=== PATIENT | female | born 1940 | race Caucasian/White ===

== ENCOUNTER 2017-10-02 16:22 | Inpatient (IN) | payer MEDICARE, OTHER ==
[2017-10-02 16:55] LABS: ADD MAN DIFF? NO
[2017-10-02] MEDS: CEFTRIAXONE 1 GM/50 ML (PMX) 50 ML IVPB (16:56)
[2017-10-02 16:57] LABS: BASOPHILS % 0.3 % (0.0-2.0); EOSINOPHILS # 0.1 10^3/ul (0.0-0.5); HEMATOCRIT 30.9 % (37.0-47.0); LYMPHOCYTES # 1.1 10^3/ul (0.8-2.9); LYMPHOCYTES % 18.4 % (15.0-51.0); MEAN CORPUSCULAR HEMOGLOBIN 27.7 pg (29.0-33.0); MEAN CORPUSCULAR HGB CONC 32.4 g/dl (32.0-37.0); MEAN CORPUSCULAR VOLUME 85.6 fl (82.0-101.0); MEAN PLATELET VOLUME 10.3 fl (7.4-10.4); MONOCYTE # 0.7 10^3/ul (0.3-0.9); MONOCYTES % 11.9 % (0.0-11.0); NEUTROPHILS % 67.5 % (39.0-77.0); PLATELET COUNT 179 10^3/UL (140-415); RED BLOOD COUNT 3.61 10^6/ul (4.20-5.40); RED CELL DISTRIBUTION WIDTH 15.2 % (11.5-14.5)
[2017-10-02 16:57] LABS: WHITE BLOOD COUNT 5.9 10^3/ul (4.8-10.8)
[2017-10-02 17:13] LABS: LACTIC ACID 1.4 mmol/L (0.5-2.0)
[2017-10-02 17:14] LABS: INR 0.93; PROTIME 12.5 Sec (11.9-14.9)
[2017-10-02 17:15] LABS: ALANINE AMINOTRANSFERASE 16 IU/L (13-69); ALBUMIN 3.8 g/dl (3.3-4.9); ALBUMIN/GLOBULIN RATIO 0.92; ALKALINE PHOSPHATASE 80 IU/L (42-121); ANION GAP 24 (8-16); ASPARTATE AMINO TRANSFERASE 15 IU/L (15-46); CALCIUM 9.3 mg/dl (8.4-10.2); CARBON DIOXIDE 30 mmol/L (21-31); CHLORIDE 88 mmol/L (97-110); CREATININE 4.08 mg/dl (0.44-1.00); GLUCOSE 89 mg/dl (70-220); PARTIAL THROMBOPLASTIN TIME 25.8 Sec (25.0-35.0); SODIUM 139 mmol/L (135-144); TOTAL PROTEIN 7.9 g/dl (6.1-8.1)
[2017-10-02 17:25] LABS: BLOOD UREA NITROGEN 129 mg/dl (7-20); POTASSIUM 2.8 mmol/L (3.5-5.1)
[2017-10-02 17:26] LABS: TROPONIN-I 0.047 ng/ml (0.00-0.12)
[2017-10-02 17:27] LABS: ADD UMIC YES; UR ASCORBIC ACID NEGATIVE (NEGATIVE); UR BACTERIA MODERATE /HPF (NONE SEEN); UR BILIRUBIN (Dip) NEGATIVE (NEGATIVE); UR BLOOD (Dip) 1+ mg/dL (NEGATIVE); UR CLARITY TURBID (CLEAR); UR COLOR YELLOW (YELLOW); UR GLUCOSE (Dip) NEGATIVE (NEGATIVE); UR KETONES (Dip) TRACE mg/dL (NEGATIVE); UR LEUKOCYTE ESTERASE (Dip) 2+ Leu/ul (NEGATIVE); UR NITRITE (Dip) POSITIVE (NEGATIVE); UR RBC 21 /HPF (0-5); UR TOTAL PROTEIN (Dip) 2+ mg/dl (NEGATIVE); UR UROBILINOGEN (Dip) NEGATIVE (NEGATIVE); UR WBC > 182 /HPF (0-5)
[2017-10-02] MEDS: morphine 4 MG/ML VIAL IV (17:30)
[2017-10-02] MEDS: ONDANSETRON 4 MG INJ IV (17:30)
[2017-10-02] MEDS: SODIUM CHLORIDE 0.9% 1L BAG IV* (18:27)
[2017-10-02] MEDS ORDERED: ONDANSETRON 4 MG TAB PO (19:00)
[2017-10-02] MEDS ORDERED: ONDANSETRON 4 MG INJ IV (19:00)
[2017-10-02] MEDS ORDERED: DOCUSATE SODIUM 100 MG CAP PO (19:00)
[2017-10-02] MEDS ORDERED: NACL 0.9% 3 ML SYG IV (19:00)
[2017-10-02] MEDS ORDERED: MAGNESIUM HYDROXIDE 30ML CUP PO (19:00)
[2017-10-02] MEDS ORDERED: ACETAMINOPHEN 325 MG TAB PO ×2 (19:00)
[2017-10-02] MEDS: [UNRECOGNIZED DRUG - REMARK] XX (19:30)
[2017-10-02 19:58] LABS: B-TYPE NATRIURETIC PEPTIDE 3970 PG/ML (0-450)
[2017-10-02] MEDS ORDERED: GLUCOSE GEL 15 GRAM TUBE BUCCAL (20:30)
[2017-10-02] MEDS ORDERED: GLUCAGON 1 MG INJ IM (20:30)
[2017-10-02] MEDS ORDERED: DEXTROSE 50% 50 ML SYRINGE IV ×2 (20:30)
[2017-10-02] MEDS ORDERED: GLUCOSE GEL 15 GRAM TUBE PO ×2 (20:30)
[2017-10-02 20:48] LABS: LACTIC ACID 1.1 mmol/L (0.5-2.0)
[2017-10-02 20:51] LABS: SODIUM,URINE RANDOM 74 mmol/L (30-90)
[2017-10-02 20:51] LABS: CREATININE,URINE RANDOM 49.86 mg/dl (20-320)
[2017-10-02] MEDS: DOCUSATE SODIUM 100 MG CAP PO (21:00)
[2017-10-02] MEDS: INSULIN ASPART [NOVOLOG] 3 ML PEN SC (21:00)
[2017-10-02] MEDS: POTASSIUM CHLORIDE (SR) 20 MEQ TAB PO (22:20)
[2017-10-02] MEDS: DIPYRIDAMOLE/ASPIRIN (SR) CAP PO (22:20)
[2017-10-02] MEDS: FISH OIL 1,000 MG CAP PO (22:20)
[2017-10-02] MEDS: INSULIN GLARGINE [LANtus] 3 ML PEN SC (22:21)
[2017-10-02] MEDS: SALMETEROL/FLUTICASONE 250/50 INHA INH (22:21)
[2017-10-02 22:49] LABS: LACTIC ACID 1.3 mmol/L (0.5-2.0); MAGNESIUM 1.4 mg/dl (1.7-2.5)
[2017-10-02] MEDS: ALBUTEROL/IPRATROPIUM (NEB) 3 ML AMP HHN ×2 (23:44→23:48)
[2017-10-03] MEDS: MAGNESIUM SULFATE 2 GM/50 ML 50 ML IVPB (00:52)
[2017-10-03] MEDS: ACCU-CHEK XX (02:00)
[2017-10-03] MEDS: POTASSIUM CHLORIDE 100 ML IVPB ×2 (02:18→04:27)
[2017-10-03] MEDS: [UNRECOGNIZED DRUG - REMARK] XX ×3 (03:30→19:30)
[2017-10-03 05:52] LABS: ADD MAN DIFF? NO
[2017-10-03 05:57] LABS: WHITE BLOOD COUNT 4.8 10^3/ul (4.8-10.8)
[2017-10-03 05:57] LABS: BASOPHILS % 0.6 % (0.0-2.0); EOSINOPHILS # 0.1 10^3/ul (0.0-0.5); EOSINOPHILS % 2.3 % (0.0-7.0); HEMATOCRIT 29.5 % (37.0-47.0); HEMOGLOBIN 9.4 g/dl (12.0-16.0); LYMPHOCYTES % 20.3 % (15.0-51.0); MEAN CORPUSCULAR HEMOGLOBIN 27.5 pg (29.0-33.0); MEAN CORPUSCULAR HGB CONC 31.9 g/dl (32.0-37.0); MEAN CORPUSCULAR VOLUME 86.3 fl (82.0-101.0); MEAN PLATELET VOLUME 10.3 fl (7.4-10.4); MONOCYTE # 0.7 10^3/ul (0.3-0.9); MONOCYTES % 14.3 % (0.0-11.0); NEUTROPHILS % 61.5 % (39.0-77.0); PLATELET COUNT 180 10^3/UL (140-415); RED BLOOD COUNT 3.42 10^6/ul (4.20-5.40); RED CELL DISTRIBUTION WIDTH 15.2 % (11.5-14.5)
[2017-10-03 06:11] LABS: HEMOGLOBIN A1C 6.5 % (0-5.9)
[2017-10-03 06:17] LABS: ANION GAP 21 (8-16); CALCIUM 9.1 mg/dl (8.4-10.2); CARBON DIOXIDE 29 mmol/L (21-31); CHLORIDE 94 mmol/L (97-110); CREATININE 3.69 mg/dl (0.44-1.00); GLUCOSE 108 mg/dl (70-220); MAGNESIUM 2.1 mg/dl (1.7-2.5); PHOSPHORUS 6.6 mg/dl (2.5-4.9); POTASSIUM 3.6 mmol/L (3.5-5.1); SODIUM 140 mmol/L (135-144)
[2017-10-03 07:15] LABS: BLOOD UREA NITROGEN 122 mg/dl (7-20)
[2017-10-03] MEDS: INSULIN ASPART [NOVOLOG] 3 ML PEN SC ×7 (07:49→20:48)
[2017-10-03] MEDS: ALBUTEROL/IPRATROPIUM (NEB) 3 ML AMP HHN ×3 (08:22→23:17)
[2017-10-03] MEDS: CLOPIDOGREL 75 MG TAB PO (08:34)
[2017-10-03] MEDS: DOCUSATE SODIUM 100 MG CAP PO ×2 (08:34→20:43)
[2017-10-03] MEDS: FISH OIL 1,000 MG CAP PO ×2 (08:34→20:43)
[2017-10-03] MEDS: DIPYRIDAMOLE/ASPIRIN (SR) CAP PO ×2 (08:35→21:03)
[2017-10-03] MEDS: SALMETEROL/FLUTICASONE 250/50 INHA INH ×2 (08:35→20:38)
[2017-10-03] MEDS: ENOXAPARIN 40 MG/0.4 ML SYG SC (08:41)
[2017-10-03] MEDS ORDERED: NON-FORMULARY/PATIENT OWN MED (Linaclotide (Linzess) 145 MCG) PO (09:00)
[2017-10-03] MEDS: SOD CHLORIDE 0.9% 250 ML IV (11:33)
[2017-10-03] MEDS: HYDROCODONE/APAP (5/325) TAB PO (13:11)
[2017-10-03] MEDS: SOD CHLORIDE 0.9% 500 ML IV (14:02)
[2017-10-03] MEDS: CEFTRIAXONE 1 GM/50 ML (PMX) 50 ML IVPB (16:39)
[2017-10-03] MEDS ORDERED: ENOXAPARIN 100 MG/ML SYG SC ×2 (18:00→21:00)
[2017-10-03] MEDS ORDERED: HEPARIN 1000 UNITS/ML 10 ML INJ IV ×2 (18:30)
[2017-10-03 18:50] LABS: ADD MAN DIFF? NO
[2017-10-03 18:51] LABS: WHITE BLOOD COUNT 4.6 10^3/ul (4.8-10.8)
[2017-10-03 18:51] LABS: BASOPHILS % 0.4 % (0.0-2.0); EOSINOPHILS % 0.9 % (0.0-7.0); HEMATOCRIT 28.2 % (37.0-47.0); LYMPHOCYTES % 21.2 % (15.0-51.0); MEAN CORPUSCULAR HEMOGLOBIN 27.8 pg (29.0-33.0); MEAN CORPUSCULAR HGB CONC 31.9 g/dl (32.0-37.0); MEAN PLATELET VOLUME 9.8 fl (7.4-10.4); MONOCYTE # 0.5 10^3/ul (0.3-0.9); MONOCYTES % 11.2 % (0.0-11.0); NEUTROPHILS % 64.6 % (39.0-77.0); PLATELET COUNT 167 10^3/UL (140-415); RED BLOOD COUNT 3.24 10^6/ul (4.20-5.40); RED CELL DISTRIBUTION WIDTH 15.3 % (11.5-14.5)
[2017-10-03 19:11] LABS: INR 0.98; PROTIME 13.1 Sec (11.9-14.9)
[2017-10-03 19:17] LABS: PARTIAL THROMBOPLASTIN TIME 28.6 Sec (25.0-35.0)
[2017-10-03] MEDS: WARFARIN 5 MG TAB PO (19:29)
[2017-10-03] MEDS: HEPARIN 1000 UNITS/ML 10 ML INJ IV (19:36)
[2017-10-03] MEDS: HEPARIN 25000 UNITS/250 ML 250 ML IV (20:43)
[2017-10-03] MEDS: INSULIN GLARGINE [LANtus] 3 ML PEN SC (20:48)
[2017-10-04] MEDS: ACCU-CHEK XX (02:45)
[2017-10-04] MEDS: [UNRECOGNIZED DRUG - REMARK] XX ×2 (03:30→11:30)
[2017-10-04 04:15] LABS: ANION GAP 19 (8-16); BLOOD UREA NITROGEN 118 mg/dl (7-20); CALCIUM 8.8 mg/dl (8.4-10.2); CARBON DIOXIDE 27 mmol/L (21-31); CHLORIDE 98 mmol/L (97-110); CREATININE 3.27 mg/dl (0.44-1.00); GLUCOSE 186 mg/dl (70-220); MAGNESIUM 1.9 mg/dl (1.7-2.5); PHOSPHORUS 5.5 mg/dl (2.5-4.9); POTASSIUM 3.3 mmol/L (3.5-5.1); SODIUM 141 mmol/L (135-144)
[2017-10-04 04:32] LABS: PARTIAL THROMBOPLASTIN TIME > 180.0 Sec (25.0-35.0)
[2017-10-04 06:50] LABS: PARTIAL THROMBOPLASTIN TIME > 180.0 Sec (25.0-35.0)
[2017-10-04] MEDS: ALBUTEROL/IPRATROPIUM (NEB) 3 ML AMP HHN ×2 (08:00→16:00)
[2017-10-04] MEDS: INSULIN ASPART [NOVOLOG] 3 ML PEN SC ×7 (08:23→21:13)
[2017-10-04] MEDS: FISH OIL 1,000 MG CAP PO ×3 (08:26→21:07)
[2017-10-04] MEDS: DOCUSATE SODIUM 100 MG CAP PO ×3 (08:29→21:18)
[2017-10-04] MEDS: SALMETEROL/FLUTICASONE 250/50 INHA INH ×2 (09:06→21:20)
[2017-10-04] MEDS: HYDROCODONE/APAP (5/325) TAB PO ×2 (09:54→15:52)
[2017-10-04] MEDS: DIPYRIDAMOLE/ASPIRIN (SR) CAP PO ×2 (11:47→21:07)
[2017-10-04] MEDS: CLOPIDOGREL 75 MG TAB PO (11:47)
[2017-10-04 13:14] LABS: IRON 56 ug/dl (35-150)
[2017-10-04 13:23] LABS: % IRON SATURATION 31 % SAT (22-52); TOTAL IRON BINDING CAPACITY 182 ug/dl (241-421)
[2017-10-04 16:04] LABS: PARTIAL THROMBOPLASTIN TIME 141.6 Sec (25.0-35.0)
[2017-10-04] MEDS: CEFTRIAXONE 1 GM/50 ML (PMX) 50 ML IVPB (16:30)
[2017-10-04] MEDS: HEPARIN 25000 UNITS/250 ML 250 ML IV (17:27)
[2017-10-04] MEDS: WARFARIN 5 MG TAB PO (18:13)
[2017-10-04 21:12] LABS: PARTIAL THROMBOPLASTIN TIME 66.5 Sec (25.0-35.0)
[2017-10-04] MEDS: INSULIN GLARGINE [LANtus] 3 ML PEN SC (21:13)
[2017-10-05] MEDS: ACCU-CHEK XX (02:00)
[2017-10-05 04:05] LABS: ADD MAN DIFF? NO
[2017-10-05 04:07] LABS: BASOPHILS % 0.7 % (0.0-2.0); EOSINOPHILS # 0.1 10^3/ul (0.0-0.5); EOSINOPHILS % 2.1 % (0.0-7.0); HEMATOCRIT 29.2 % (37.0-47.0); HEMOGLOBIN 9.3 g/dl (12.0-16.0); LYMPHOCYTES # 1.1 10^3/ul (0.8-2.9); LYMPHOCYTES % 19.1 % (15.0-51.0); MEAN CORPUSCULAR HEMOGLOBIN 27.8 pg (29.0-33.0); MEAN CORPUSCULAR HGB CONC 31.8 g/dl (32.0-37.0); MEAN CORPUSCULAR VOLUME 87.2 fl (82.0-101.0); MONOCYTE # 0.6 10^3/ul (0.3-0.9); MONOCYTES % 10.1 % (0.0-11.0); NEUTROPHIL # 3.6 10^3/ul (1.6-7.5); NEUTROPHILS % 64.6 % (39.0-77.0); PLATELET COUNT 150 10^3/UL (140-415); RED BLOOD COUNT 3.35 10^6/ul (4.20-5.40); RED CELL DISTRIBUTION WIDTH 15.1 % (11.5-14.5)
[2017-10-05 04:07] LABS: WHITE BLOOD COUNT 5.6 10^3/ul (4.8-10.8)
[2017-10-05 04:27] LABS: ANION GAP 19 (8-16); BLOOD UREA NITROGEN 111 mg/dl (7-20); CALCIUM 9.2 mg/dl (8.4-10.2); CARBON DIOXIDE 28 mmol/L (21-31); CHLORIDE 97 mmol/L (97-110); CREATININE 3.45 mg/dl (0.44-1.00); GLUCOSE 126 mg/dl (70-220); MAGNESIUM 1.6 mg/dl (1.7-2.5); PHOSPHORUS 6.1 mg/dl (2.5-4.9); POTASSIUM 3.3 mmol/L (3.5-5.1); SODIUM 141 mmol/L (135-144)
[2017-10-05 04:43] LABS: PARTIAL THROMBOPLASTIN TIME 136.9 Sec (25.0-35.0)
[2017-10-05] MEDS: PANTOPRAZOLE (EC) 40 MG TAB PO (06:04)
[2017-10-05] MEDS: LINACLOTIDE 145 MCG XX ×2 (08:00→16:00)
[2017-10-05] MEDS: INSULIN ASPART [NOVOLOG] 3 ML PEN SC ×7 (08:15→21:00)
[2017-10-05] MEDS: SALMETEROL/FLUTICASONE 250/50 INHA INH ×2 (08:39→21:31)
[2017-10-05] MEDS: FISH OIL 1,000 MG CAP PO ×2 (08:40→21:31)
[2017-10-05] MEDS: DIPYRIDAMOLE/ASPIRIN (SR) CAP PO ×2 (08:40→21:31)
[2017-10-05] MEDS: CLOPIDOGREL 75 MG TAB PO (08:40)
[2017-10-05] MEDS: ALBUTEROL/IPRATROPIUM (NEB) 3 ML AMP HHN ×4 (09:20→23:27)
[2017-10-05] MEDS: POTASSIUM CHLORIDE (SR) 20 MEQ TAB PO (09:34)
[2017-10-05] MEDS: ALBUMIN HUMAN 25% 100 ML IV ×2 (09:35→17:06)
[2017-10-05] MEDS: HYDROCODONE/APAP (5/325) TAB PO ×2 (10:43→17:03)
[2017-10-05] MEDS: ONDANSETRON 4 MG INJ IV (12:15)
[2017-10-05 12:50] LABS: INR 1.15; PROTIME 14.9 Sec (11.9-14.9); PT RATIO 1.2
[2017-10-05 13:08] LABS: PARTIAL THROMBOPLASTIN TIME 88.9 Sec (25.0-35.0)
[2017-10-05] MEDS: MAGNESIUM SULFATE 1 GM/D5W 100 ML IVPB (13:55)
[2017-10-05] MEDS: CEFTRIAXONE 1 GM/50 ML (PMX) 50 ML IVPB (15:25)
[2017-10-05] MEDS: morphine 2 MG INJ IV ×2 (15:25→15:29)
[2017-10-05] MEDS ORDERED: PIPER-TAZO 3.375 GM IV (PMX) 100 ML IVPB (17:00)
[2017-10-05] MEDS: WARFARIN 5 MG TAB PO (17:03)
[2017-10-05] MEDS: PIPER-TAZO 2.25 GM (PMX) 50 ML IVPB ×2 (18:15→22:00)
[2017-10-05] MEDS: HEPARIN 25000 UNITS/250 ML 250 ML IV (18:18)
[2017-10-05 18:23] LABS: PARTIAL THROMBOPLASTIN TIME 71.8 Sec (25.0-35.0)
[2017-10-05] MEDS: DOCUSATE SODIUM 100 MG CAP PO (21:31)
[2017-10-05] MEDS: INSULIN GLARGINE [LANtus] 3 ML PEN SC (21:36)
[2017-10-06] MEDS: ALBUMIN HUMAN 25% 100 ML IV (01:33)
[2017-10-06] MEDS: ACCU-CHEK XX (02:00)
[2017-10-06] MEDS: PIPER-TAZO 2.25 GM (PMX) 50 ML IVPB ×3 (05:15→21:41)
[2017-10-06 05:43] LABS: WHITE BLOOD COUNT 5.1 10^3/ul (4.8-10.8)
[2017-10-06 05:43] LABS: ABNORMAL IP MESSAGE 1; HEMATOCRIT 24.1 % (37.0-47.0); HEMOGLOBIN 7.8 g/dl (12.0-16.0); MEAN CORPUSCULAR HEMOGLOBIN 28.1 pg (29.0-33.0); MEAN CORPUSCULAR HGB CONC 32.4 g/dl (32.0-37.0); MEAN CORPUSCULAR VOLUME 86.7 fl (82.0-101.0); MEAN PLATELET VOLUME 10.5 fl (7.4-10.4); PLATELET COUNT 137 10^3/UL (140-415); RED BLOOD COUNT 2.78 10^6/ul (4.20-5.40)
[2017-10-06] MEDS: PANTOPRAZOLE (EC) 40 MG TAB PO (05:46)
[2017-10-06 06:04] LABS: INR 1.43; PROTIME 17.7 Sec (11.9-14.9); PT RATIO 1.4
[2017-10-06 06:19] LABS: PARTIAL THROMBOPLASTIN TIME 118.2 Sec (25.0-35.0)
[2017-10-06 06:28] LABS: ADD MAN DIFF? YES; POSITIVE DIFF @See below
[2017-10-06] MEDS: HEPARIN 25000 UNITS/250 ML 250 ML IV ×2 (06:53→22:06)
[2017-10-06 07:09] LABS: ANION GAP 23 (8-16); BLOOD UREA NITROGEN 105 mg/dl (7-20); CALCIUM 9.5 mg/dl (8.4-10.2); CARBON DIOXIDE 29 mmol/L (21-31); CHLORIDE 95 mmol/L (97-110); CREATININE 3.51 mg/dl (0.44-1.00); GLUCOSE 113 mg/dl (70-220); MAGNESIUM 1.8 mg/dl (1.7-2.5); PHOSPHORUS 5.7 mg/dl (2.5-4.9); POTASSIUM 3.3 mmol/L (3.5-5.1); SODIUM 144 mmol/L (135-144)
[2017-10-06] MEDS: LINACLOTIDE 145 MCG XX ×2 (08:00)
[2017-10-06] MEDS: ALBUTEROL/IPRATROPIUM (NEB) 3 ML AMP HHN ×2 (08:00→15:24)
[2017-10-06] MEDS: DOCUSATE SODIUM 100 MG CAP PO ×2 (08:43→21:36)
[2017-10-06] MEDS: FISH OIL 1,000 MG CAP PO ×2 (08:43→21:36)
[2017-10-06] MEDS: DIPYRIDAMOLE/ASPIRIN (SR) CAP PO ×2 (08:43→21:38)
[2017-10-06] MEDS: SALMETEROL/FLUTICASONE 250/50 INHA INH ×2 (08:43→21:38)
[2017-10-06] MEDS: CLOPIDOGREL 75 MG TAB PO (08:43)
[2017-10-06] MEDS: INSULIN ASPART [NOVOLOG] 3 ML PEN SC ×7 (08:47→21:00)
[2017-10-06 09:36] LABS: ANISOCYTOSIS 2+ (0-0); BASOPHILS % (M) 1 % (0-2); ERYTHROBLAST% (NRBC) (M) 1 % (0-0); GIANT THROMBO% (M) 7 % (0-0); LYMPHOCYTES % (M) 21 % (15-51); METAMYELOCYTES %M 1 % (0-0); MICROCYTOSIS 1+ (0-0); MONOCYTE #M 0.2 10^3/ul (0.3-0.9); MONOCYTES % (M) 5 % (0-11); MYELOCYTES #M 0.1 10^3/ul (0.0-0.0); MYELOCYTES % (M) 3 % (0-0); PLATELET ESTIMATE DECREASED; POIKILOCYTOSIS 1+ (0-0); POLYCHROMASIA 2+ (0-0); SEGMENTED NEUTROPHILS (M) % 69 % (39-77); SMUDGE%M 4 % (0-0)
[2017-10-06] MEDS: SEVELAMER 400 MG TAB PO ×2 (11:59→17:33)
[2017-10-06] MEDS: HYDROCODONE/APAP (5/325) TAB PO ×2 (12:02→19:52)
[2017-10-06 15:54] LABS: PARTIAL THROMBOPLASTIN TIME 94.2 Sec (25.0-35.0)
[2017-10-06] MEDS: WARFARIN 5 MG TAB PO (17:33)
[2017-10-06] MEDS: EPOETIN 4000 UNITS/1 ML INJ (ESRD) SC (17:34)
[2017-10-06] MEDS: INSULIN GLARGINE [LANtus] 3 ML PEN SC (21:00)
[2017-10-06 22:57] LABS: PARTIAL THROMBOPLASTIN TIME 67.4 Sec (25.0-35.0)
[2017-10-07] MEDS: ALBUTEROL/IPRATROPIUM (NEB) 3 ML AMP HHN ×4 (00:03→23:07)
[2017-10-07] MEDS: ACCU-CHEK XX (02:00)
[2017-10-07] MEDS: ONDANSETRON 4 MG INJ IV (05:02)
[2017-10-07] MEDS: PANTOPRAZOLE (EC) 40 MG TAB PO ×2 (05:52→21:05)
[2017-10-07] MEDS: PIPER-TAZO 2.25 GM (PMX) 50 ML IVPB ×3 (05:52→21:52)
[2017-10-07 05:57] LABS: ADD MAN DIFF? NO
[2017-10-07 06:01] LABS: WHITE BLOOD COUNT 6.4 10^3/ul (4.8-10.8)
[2017-10-07 06:01] LABS: BASOPHILS % 0.3 % (0.0-2.0); EOSINOPHILS # 0.2 10^3/ul (0.0-0.5); EOSINOPHILS % 2.3 % (0.0-7.0); HEMATOCRIT 26.7 % (37.0-47.0); HEMOGLOBIN 8.5 g/dl (12.0-16.0); LYMPHOCYTES % 15.8 % (15.0-51.0); MEAN CORPUSCULAR HEMOGLOBIN 27.8 pg (29.0-33.0); MEAN CORPUSCULAR HGB CONC 31.8 g/dl (32.0-37.0); MEAN CORPUSCULAR VOLUME 87.3 fl (82.0-101.0); MEAN PLATELET VOLUME 10.3 fl (7.4-10.4); MONOCYTE # 0.5 10^3/ul (0.3-0.9); MONOCYTES % 7.2 % (0.0-11.0); NEUTROPHIL # 4.5 10^3/ul (1.6-7.5); NEUTROPHILS % 70.6 % (39.0-77.0); PLATELET COUNT 150 10^3/UL (140-415); RED BLOOD COUNT 3.06 10^6/ul (4.20-5.40); RED CELL DISTRIBUTION WIDTH 15.3 % (11.5-14.5)
[2017-10-07 06:17] LABS: PROTIME 22.2 Sec (11.9-14.9); PT RATIO 1.7
[2017-10-07 06:37] LABS: PARTIAL THROMBOPLASTIN TIME 102.9 Sec (25.0-35.0)
[2017-10-07 08:09] LABS: ANION GAP 22 (8-16); BLOOD UREA NITROGEN 102 mg/dl (7-20); CALCIUM 9.1 mg/dl (8.4-10.2); CARBON DIOXIDE 27 mmol/L (21-31); CHLORIDE 99 mmol/L (97-110); CREATININE 3.57 mg/dl (0.44-1.00); GLUCOSE 116 mg/dl (70-220); MAGNESIUM 1.6 mg/dl (1.7-2.5); PHOSPHORUS 5.6 mg/dl (2.5-4.9); POTASSIUM 3.6 mmol/L (3.5-5.1); SODIUM 144 mmol/L (135-144)
[2017-10-07] MEDS: DOCUSATE SODIUM 100 MG CAP PO ×2 (08:47→20:59)
[2017-10-07] MEDS: SEVELAMER 400 MG TAB PO ×3 (08:47→17:59)
[2017-10-07] MEDS: CLOPIDOGREL 75 MG TAB PO (08:47)
[2017-10-07] MEDS: FISH OIL 1,000 MG CAP PO ×2 (08:47→20:59)
[2017-10-07] MEDS: SALMETEROL/FLUTICASONE 250/50 INHA INH ×2 (08:50→20:59)
[2017-10-07] MEDS: INSULIN ASPART [NOVOLOG] 3 ML PEN SC ×7 (08:50→21:00)
[2017-10-07] MEDS: DIPYRIDAMOLE/ASPIRIN (SR) CAP PO ×2 (09:03→21:05)
[2017-10-07] MEDS: MAGNESIUM SULFATE 2 GM/50 ML 50 ML IVPB (11:09)
[2017-10-07] MEDS ORDERED: HYDROCODONE/APAP (5/325) TAB PO (12:00)
[2017-10-07] MEDS: BACLOFEN 10 MG TAB PO ×2 (12:23→20:59)
[2017-10-07] MEDS: morphine 2 MG INJ IV ×2 (15:36→21:52)
[2017-10-07] MEDS: SUCRALFATE (100 MG/ML) 10ML CUP GTB ×2 (17:59→21:00)
[2017-10-07] MEDS: APIXABAN 5 MG TABLET PO (20:59)
[2017-10-07] MEDS: INSULIN GLARGINE [LANtus] 3 ML PEN SC (21:12)
[2017-10-08] MEDS: ACCU-CHEK XX (02:00)
[2017-10-08] MEDS: PIPER-TAZO 2.25 GM (PMX) 50 ML IVPB ×3 (06:07→21:45)
[2017-10-08 06:09] LABS: ADD MAN DIFF? NO
[2017-10-08 06:12] LABS: WHITE BLOOD COUNT 16.3 10^3/ul (4.8-10.8)
[2017-10-08 06:13] LABS: BASOPHILS % 0.1 % (0.0-2.0); EOSINOPHILS # 0.1 10^3/ul (0.0-0.5); EOSINOPHILS % 0.6 % (0.0-7.0); HEMOGLOBIN 8.6 g/dl (12.0-16.0); LYMPHOCYTES # 1.2 10^3/ul (0.8-2.9); LYMPHOCYTES % 7.6 % (15.0-51.0); MEAN CORPUSCULAR HEMOGLOBIN 27.7 pg (29.0-33.0); MEAN CORPUSCULAR HGB CONC 31.9 g/dl (32.0-37.0); MEAN CORPUSCULAR VOLUME 86.8 fl (82.0-101.0); MEAN PLATELET VOLUME 10.5 fl (7.4-10.4); MONOCYTES % 6.3 % (0.0-11.0); NEUTROPHIL # 13.7 10^3/ul (1.6-7.5); NEUTROPHILS % 84.2 % (39.0-77.0); PLATELET COUNT 158 10^3/UL (140-415); RED BLOOD COUNT 3.11 10^6/ul (4.20-5.40); RED CELL DISTRIBUTION WIDTH 15.6 % (11.5-14.5)
[2017-10-08 06:45] LABS: INR 2.04; PROTIME 23.5 Sec (11.9-14.9); PT RATIO 1.8
[2017-10-08 06:52] LABS: ANION GAP 20 (8-16); BLOOD UREA NITROGEN 92 mg/dl (7-20); CALCIUM 9.5 mg/dl (8.4-10.2); CARBON DIOXIDE 26 mmol/L (21-31); CHLORIDE 98 mmol/L (97-110); GLUCOSE 141 mg/dl (70-220); MAGNESIUM 1.9 mg/dl (1.7-2.5); PHOSPHORUS 5.2 mg/dl (2.5-4.9); POTASSIUM 3.1 mmol/L (3.5-5.1); SODIUM 141 mmol/L (135-144)
[2017-10-08] MEDS: ALBUTEROL/IPRATROPIUM (NEB) 3 ML AMP HHN ×3 (08:00→23:06)
[2017-10-08] MEDS: morphine 2 MG INJ IV (09:03)
[2017-10-08] MEDS: POTASSIUM CHLORIDE (SR) 20 MEQ TAB PO (09:13)
[2017-10-08] MEDS: INSULIN ASPART [NOVOLOG] 3 ML PEN SC ×7 (09:14→21:00)
[2017-10-08] MEDS: CLOPIDOGREL 75 MG TAB PO (09:16)
[2017-10-08] MEDS: APIXABAN 5 MG TABLET PO ×2 (09:16→21:00)
[2017-10-08] MEDS: PANTOPRAZOLE (EC) 40 MG TAB PO ×2 (09:16→21:00)
[2017-10-08] MEDS: DOCUSATE SODIUM 100 MG CAP PO ×2 (09:16→21:00)
[2017-10-08] MEDS: FISH OIL 1,000 MG CAP PO ×2 (09:16→21:00)
[2017-10-08] MEDS: SEVELAMER 400 MG TAB PO ×3 (09:16→17:47)
[2017-10-08] MEDS: BACLOFEN 10 MG TAB PO ×3 (09:16→21:00)
[2017-10-08] MEDS: DIPYRIDAMOLE/ASPIRIN (SR) CAP PO ×2 (09:16→21:00)
[2017-10-08] MEDS: SALMETEROL/FLUTICASONE 250/50 INHA INH ×2 (09:17→21:00)
[2017-10-08] MEDS: SUCRALFATE (100 MG/ML) 10ML CUP GTB ×4 (09:17→21:00)
[2017-10-08 15:56] LABS: OCCULT BLOOD STOOL NEGATIVE (NEGATIVE)
[2017-10-08] MEDS ORDERED: morphine LIQ (10 MG/5 ML) CUP PO (17:00)
[2017-10-08] MEDS: EPOETIN 4000 UNITS/1 ML INJ (ESRD) SC (17:49)
[2017-10-08] MEDS: INSULIN GLARGINE [LANtus] 3 ML PEN SC (21:55)
[2017-10-09 00:01] LABS: AADO2 Arterial 49.4 mmHg (7.0-24.0); Allen Test ACCEPTAB; Arterial Base Excess 0.2 mmol/L (-3.0-3); Arterial Blood Gas Oxygen Sat 83.8 mmHG (95.0-100.0); Arterial COHb 0 % (0.0-3.0); Arterial Fraction of Oxyhgb 83.5 % (93.0-99.0); Arterial HCO3 24.9 mmol/L (22.0-26.0); Arterial MetHb 0.3 % (0.0-1.5); Arterial Total Hemglobin 10.4 g/dl (12.0-18.0); Arterial pCO2 40.2 mmhg (35-45); MODE ROOM AIR; Site Right Radial
[2017-10-09] MEDS: ALBUMIN HUMAN 25% 100 ML IV (00:16)
[2017-10-09] MEDS: ACCU-CHEK XX ×2 (02:00→23:44)
[2017-10-09 05:33] LABS: AADO2 Arterial 136.4 mmHg (7.0-24.0); Allen Test ACCEPTAB; Arterial Base Excess 1.7 mmol/L (-3.0-3); Arterial Blood Gas Oxygen Sat 96.8 mmHG (95.0-100.0); Arterial COHb 0.3 % (0.0-3.0); Arterial Fraction of Oxyhgb 96.2 % (93.0-99.0); Arterial HCO3 26.2 mmol/L (22.0-26.0); Arterial MetHb 0.3 % (0.0-1.5); Arterial Total Hemglobin 8.9 g/dl (12.0-18.0); Arterial pCO2 40.7 mmhg (35-45); Blood Gas PS 5; MODE MASK - BIPAP; Site Right Radial
[2017-10-09 05:39] LABS: ADD MAN DIFF? NO
[2017-10-09 05:45] LABS: WHITE BLOOD COUNT 21.6 10^3/ul (4.8-10.8)
[2017-10-09 05:45] LABS: BASOPHILS % 0.1 % (0.0-2.0); HEMATOCRIT 25.7 % (37.0-47.0); HEMOGLOBIN 8.2 g/dl (12.0-16.0); LYMPHOCYTES # 0.8 10^3/ul (0.8-2.9); LYMPHOCYTES % 3.7 % (15.0-51.0); MEAN CORPUSCULAR HEMOGLOBIN 27.9 pg (29.0-33.0); MEAN CORPUSCULAR HGB CONC 31.9 g/dl (32.0-37.0); MEAN CORPUSCULAR VOLUME 87.4 fl (82.0-101.0); MEAN PLATELET VOLUME 10.6 fl (7.4-10.4); MONOCYTES % 4.8 % (0.0-11.0); NEUTROPHIL # 19.4 10^3/ul (1.6-7.5); NEUTROPHILS % 89.7 % (39.0-77.0); PLATELET COUNT 161 10^3/UL (140-415); RED BLOOD COUNT 2.94 10^6/ul (4.20-5.40); RED CELL DISTRIBUTION WIDTH 15.5 % (11.5-14.5)
[2017-10-09 06:09] LABS: ANION GAP 23 (8-16); BLOOD UREA NITROGEN 99 mg/dl (7-20); CALCIUM 9.3 mg/dl (8.4-10.2); CARBON DIOXIDE 23 mmol/L (21-31); CHLORIDE 100 mmol/L (97-110); CREATININE 3.61 mg/dl (0.44-1.00); GLUCOSE 146 mg/dl (70-220); MAGNESIUM 1.9 mg/dl (1.7-2.5); PHOSPHORUS 6.4 mg/dl (2.5-4.9); POTASSIUM 3.1 mmol/L (3.5-5.1); SODIUM 143 mmol/L (135-144)
[2017-10-09 06:16] LABS: INR 2.62; PROTIME 28.7 Sec (11.9-14.9); PT RATIO 2.2
[2017-10-09] MEDS: PIPER-TAZO 2.25 GM (PMX) 50 ML IVPB ×3 (06:18→21:48)
[2017-10-09] MEDS: INSULIN ASPART [NOVOLOG] 3 ML PEN SC ×8 (08:15→21:00)
[2017-10-09] MEDS: SEVELAMER 400 MG TAB PO ×3 (08:15→17:01)
[2017-10-09] MEDS: APIXABAN 5 MG TABLET PO ×2 (08:44→22:02)
[2017-10-09] MEDS: DOCUSATE SODIUM 100 MG CAP PO ×2 (08:44→22:02)
[2017-10-09] MEDS: SALMETEROL/FLUTICASONE 250/50 INHA INH ×2 (08:44→22:01)
[2017-10-09] MEDS: POTASSIUM CHLORIDE (SR) 20 MEQ TAB PO (08:44)
[2017-10-09] MEDS: SUCRALFATE (100 MG/ML) 10ML CUP GTB ×4 (08:44→22:01)
[2017-10-09] MEDS: DIPYRIDAMOLE/ASPIRIN (SR) CAP PO ×2 (08:44→22:02)
[2017-10-09] MEDS: BACLOFEN 10 MG TAB PO ×3 (08:45→22:03)
[2017-10-09] MEDS: FISH OIL 1,000 MG CAP PO ×2 (08:45→22:02)
[2017-10-09] MEDS: PANTOPRAZOLE (EC) 40 MG TAB PO ×2 (08:45→22:03)
[2017-10-09] MEDS: CLOPIDOGREL 75 MG TAB PO (08:45)
[2017-10-09] MEDS: ALBUTEROL/IPRATROPIUM (NEB) 3 ML AMP HHN ×3 (08:52→23:08)
[2017-10-09] MEDS: SOD CHLORIDE 0.45% 1,000 ML IV (14:31)
[2017-10-09 17:28] LABS: ADD UMIC YES; UR ASCORBIC ACID NEGATIVE (NEGATIVE); UR BILIRUBIN (Dip) NEGATIVE (NEGATIVE); UR BLOOD (Dip) 1+ mg/dL (NEGATIVE); UR CLARITY SLIGHTLY CLOUDY (CLEAR); UR COLOR YELLOW (YELLOW); UR GLUCOSE (Dip) NEGATIVE (NEGATIVE); UR KETONES (Dip) NEGATIVE (NEGATIVE); UR LEUKOCYTE ESTERASE (Dip) 1+ Leu/ul (NEGATIVE); UR NITRITE (Dip) NEGATIVE (NEGATIVE); UR RBC 2 /HPF (0-5); UR SPECIFIC GRAVITY (Dip) 1.012 (1.003-1.030); UR SQUAMOUS EPITHELIAL CELL FEW /HPF (FEW); UR TOTAL PROTEIN (Dip) 1+ mg/dl (NEGATIVE); UR UROBILINOGEN (Dip) NEGATIVE (NEGATIVE); UR WBC 25 /HPF (0-5)
[2017-10-09] MEDS: INSULIN GLARGINE [LANtus] 3 ML PEN SC (22:01)
[2017-10-10] MEDS: PIPER-TAZO 2.25 GM (PMX) 50 ML IVPB ×2 (05:33→15:03)
[2017-10-10 06:11] LABS: ADD MAN DIFF? NO
[2017-10-10 06:20] LABS: ABNORMAL IP MESSAGE 1; BASOPHILS % 0.2 % (0.0-2.0); EOSINOPHILS % 0.1 % (0.0-7.0); HEMATOCRIT 28.1 % (37.0-47.0); HEMOGLOBIN 8.8 g/dl (12.0-16.0); LYMPHOCYTES # 0.8 10^3/ul (0.8-2.9); LYMPHOCYTES % 3.4 % (15.0-51.0); MEAN CORPUSCULAR HEMOGLOBIN 27.3 pg (29.0-33.0); MEAN CORPUSCULAR HGB CONC 31.3 g/dl (32.0-37.0); MEAN CORPUSCULAR VOLUME 87.3 fl (82.0-101.0); MEAN PLATELET VOLUME 10.7 fl (7.4-10.4); MONOCYTES % 4.1 % (0.0-11.0); NEUTROPHIL # 21.3 10^3/ul (1.6-7.5); NEUTROPHILS % 88.8 % (39.0-77.0); PLATELET COUNT 189 10^3/UL (140-415); RED BLOOD COUNT 3.22 10^6/ul (4.20-5.40); RED CELL DISTRIBUTION WIDTH 15.5 % (11.5-14.5)
[2017-10-10 06:48] LABS: ANION GAP 23 (8-16); BLOOD UREA NITROGEN 97 mg/dl (7-20); CALCIUM 9.4 mg/dl (8.4-10.2); CARBON DIOXIDE 23 mmol/L (21-31); CHLORIDE 103 mmol/L (97-110); CREATININE 4.01 mg/dl (0.44-1.00); GLUCOSE 115 mg/dl (70-220); MAGNESIUM 1.9 mg/dl (1.7-2.5); PHOSPHORUS 6.8 mg/dl (2.5-4.9); SODIUM 146 mmol/L (135-144)
[2017-10-10 06:58] LABS: POTASSIUM 2.6 mmol/L (3.5-5.1)
[2017-10-10 06:59] LABS: POSITIVE DIFF @See below
[2017-10-10] MEDS: ALBUTEROL/IPRATROPIUM (NEB) 3 ML AMP HHN ×3 (07:45→23:49)
[2017-10-10] MEDS: INSULIN ASPART [NOVOLOG] 3 ML PEN SC ×7 (08:15→21:00)
[2017-10-10] MEDS: SOD CHLORIDE 0.9% 1,000 ML IV ×2 (08:55→21:09)
[2017-10-10] MEDS: POTASSIUM CHLORIDE 100 ML IVPB ×3 (08:56→12:55)
[2017-10-10] MEDS: SALMETEROL/FLUTICASONE 250/50 INHA INH ×2 (09:01→21:00)
[2017-10-10] MEDS: APIXABAN 5 MG TABLET PO ×2 (09:02→21:00)
[2017-10-10] MEDS: DIPYRIDAMOLE/ASPIRIN (SR) CAP PO ×2 (09:06→21:00)
[2017-10-10] MEDS: SEVELAMER 400 MG TAB PO ×3 (09:07→18:49)
[2017-10-10] MEDS: BACLOFEN 10 MG TAB PO ×3 (09:08→21:00)
[2017-10-10] MEDS: CLOPIDOGREL 75 MG TAB PO (09:08)
[2017-10-10] MEDS: PANTOPRAZOLE (EC) 40 MG TAB PO ×2 (09:09→21:00)
[2017-10-10] MEDS: FISH OIL 1,000 MG CAP PO ×2 (09:10→21:00)
[2017-10-10] MEDS: SUCRALFATE (100 MG/ML) 10ML CUP GTB ×4 (09:10→21:00)
[2017-10-10] MEDS: DOCUSATE SODIUM 100 MG CAP PO ×2 (09:11→21:00)
[2017-10-10 14:01] LABS: ANION GAP 21 (8-16); BLOOD UREA NITROGEN 98 mg/dl (7-20); CALCIUM 9.3 mg/dl (8.4-10.2); CARBON DIOXIDE 24 mmol/L (21-31); CHLORIDE 104 mmol/L (97-110); CREATININE 4.04 mg/dl (0.44-1.00); GLUCOSE 110 mg/dl (70-220); POTASSIUM 3.3 mmol/L (3.5-5.1); SODIUM 146 mmol/L (135-144)
[2017-10-10 17:11] LABS: POTASSIUM 3.7 mmol/L (3.5-5.1)
[2017-10-10] MEDS: EPOETIN 4000 UNITS/1 ML INJ (ESRD) SC (18:17)
[2017-10-10] MEDS: VANCOMYCIN HCL 250 MG/5ML POSYG PO ×2 (18:49→23:30)
[2017-10-10] MEDS: FOSFOMYCIN 3 GM PACKET PO (18:50)
[2017-10-10] MEDS: INSULIN GLARGINE [LANtus] 3 ML PEN SC (21:17)
[2017-10-11] MEDS: ACCU-CHEK XX (01:48)
[2017-10-11] MEDS: SOD CHLORIDE 0.9% 1,000 ML IV (01:50)
[2017-10-11] MEDS: VANCOMYCIN HCL 250 MG/5ML POSYG PO ×4 (05:29→17:34)
[2017-10-11 06:08] LABS: ADD MAN DIFF? NO
[2017-10-11 06:13] LABS: WHITE BLOOD COUNT 21.7 10^3/ul (4.8-10.8)
[2017-10-11 06:13] LABS: BASOPHILS % 0.1 % (0.0-2.0); EOSINOPHILS % 0.1 % (0.0-7.0); HEMATOCRIT 27.4 % (37.0-47.0); HEMOGLOBIN 8.6 g/dl (12.0-16.0); LYMPHOCYTES % 4.4 % (15.0-51.0); MEAN CORPUSCULAR HEMOGLOBIN 27.8 pg (29.0-33.0); MEAN CORPUSCULAR HGB CONC 31.4 g/dl (32.0-37.0); MEAN CORPUSCULAR VOLUME 88.7 fl (82.0-101.0); MEAN PLATELET VOLUME 10.7 fl (7.4-10.4); MONOCYTE # 1.2 10^3/ul (0.3-0.9); MONOCYTES % 5.7 % (0.0-11.0); NEUTROPHILS % 87.4 % (39.0-77.0); NUCLEATED RED BLOOD CELLS # 0.1 10^3/ul (0.0-0.0); NUCLEATED RED BLOOD CELLS% 0.2 /100WBC (0.0-0.0); PLATELET COUNT 201 10^3/UL (140-415); RED BLOOD COUNT 3.09 10^6/ul (4.20-5.40); RED CELL DISTRIBUTION WIDTH 15.9 % (11.5-14.5)
[2017-10-11 06:38] LABS: ANION GAP 26 (8-16); BLOOD UREA NITROGEN 97 mg/dl (7-20); CALCIUM 8.7 mg/dl (8.4-10.2); CARBON DIOXIDE 19 mmol/L (21-31); CHLORIDE 109 mmol/L (97-110); GLUCOSE 127 mg/dl (70-220); MAGNESIUM 1.8 mg/dl (1.7-2.5); PHOSPHORUS 5.2 mg/dl (2.5-4.9); POTASSIUM 3.2 mmol/L (3.5-5.1); SODIUM 151 mmol/L (135-144)
[2017-10-11] MEDS: INSULIN ASPART [NOVOLOG] 3 ML PEN SC ×7 (08:15→21:08)
[2017-10-11] MEDS: SEVELAMER 400 MG TAB PO ×3 (08:15→17:33)
[2017-10-11] MEDS: ALBUTEROL/IPRATROPIUM (NEB) 3 ML AMP HHN ×3 (08:26→23:40)
[2017-10-11] MEDS: SUCRALFATE (100 MG/ML) 10ML CUP GTB ×4 (08:31→21:00)
[2017-10-11] MEDS: SALMETEROL/FLUTICASONE 250/50 INHA INH ×2 (08:31→21:00)
[2017-10-11] MEDS: DIPYRIDAMOLE/ASPIRIN (SR) CAP PO ×2 (08:31→21:00)
[2017-10-11] MEDS: DOCUSATE SODIUM 100 MG CAP PO ×2 (08:32→21:00)
[2017-10-11] MEDS: FISH OIL 1,000 MG CAP PO ×2 (08:32→21:00)
[2017-10-11] MEDS: APIXABAN 5 MG TABLET PO ×2 (08:32→21:00)
[2017-10-11] MEDS: BACLOFEN 10 MG TAB PO ×3 (08:32→21:00)
[2017-10-11] MEDS: PANTOPRAZOLE (EC) 40 MG TAB PO ×2 (08:32→21:00)
[2017-10-11] MEDS: CLOPIDOGREL 75 MG TAB PO (08:33)
[2017-10-11] MEDS: DEXTROSE 5% 1,000 ML IV (08:41)
[2017-10-11] MEDS: POTASSIUM CHLORIDE 100 ML IVPB ×2 (09:44→12:06)
[2017-10-11] MEDS ORDERED: VANCOMYCIN HCL 250 MG/5ML POSYG PO (12:00)
[2017-10-11] MEDS: SOD CHLORIDE 0.9% 250 ML IV (13:05)
[2017-10-11 14:29] LABS: LACTIC ACID 1.3 mmol/L (0.5-2.0)
[2017-10-11] MEDS: metroNIDAZOLE 500 MG/NS (PMX) 100 ML IVPB ×2 (14:55→22:18)
[2017-10-11] MEDS: RIFAXIMIN 200 MG TAB PO ×2 (17:33→22:18)
[2017-10-11] MEDS: INSULIN GLARGINE [LANtus] 3 ML PEN SC (21:08)
[2017-10-12] MEDS: VANCOMYCIN HCL 250 MG/5ML POSYG PO ×4 (00:12→17:37)
[2017-10-12] MEDS: ACCU-CHEK XX (03:07)
[2017-10-12 06:12] LABS: ABNORMAL IP MESSAGE 1; HEMATOCRIT 28.7 % (37.0-47.0); MEAN CORPUSCULAR HEMOGLOBIN 27.5 pg (29.0-33.0); MEAN CORPUSCULAR HGB CONC 31.4 g/dl (32.0-37.0); MEAN CORPUSCULAR VOLUME 87.8 fl (82.0-101.0); MEAN PLATELET VOLUME 10.9 fl (7.4-10.4); NUCLEATED RED BLOOD CELLS% 0.3 /100WBC (0.0-0.0); PLATELET COUNT 228 10^3/UL (140-415); RED BLOOD COUNT 3.27 10^6/ul (4.20-5.40); RED CELL DISTRIBUTION WIDTH 15.9 % (11.5-14.5)
[2017-10-12 06:12] LABS: WHITE BLOOD COUNT 17.3 10^3/ul (4.8-10.8)
[2017-10-12 06:21] LABS: POSITIVE DIFF @See below
[2017-10-12 06:22] LABS: ADD MAN DIFF? YES
[2017-10-12] MEDS: DEXTROSE 5% 1,000 ML IV (06:23)
[2017-10-12] MEDS: metroNIDAZOLE 500 MG/NS (PMX) 100 ML IVPB ×3 (06:24→22:38)
[2017-10-12 06:41] LABS: ANION GAP 21 (8-16); BLOOD UREA NITROGEN 99 mg/dl (7-20); CALCIUM 8.9 mg/dl (8.4-10.2); CARBON DIOXIDE 18 mmol/L (21-31); CHLORIDE 109 mmol/L (97-110); CREATININE 4.09 mg/dl (0.44-1.00); GLUCOSE 220 mg/dl (70-220); MAGNESIUM 1.8 mg/dl (1.7-2.5); PHOSPHORUS 4.9 mg/dl (2.5-4.9); POTASSIUM 3.1 mmol/L (3.5-5.1); SODIUM 145 mmol/L (135-144)
[2017-10-12 07:30] LABS: ANISOCYTOSIS 1+ (0-0); BAND NEUTROPHILS #M 1.9 10^3/ul (0.0-0.6); BAND NEUTROPHILS % (M) 11 % (0-4); ERYTHROBLAST% (NRBC) (M) 1 % (0-0); LYMPHOCYTES #M 0.5 10^3/ul (0.8-2.9); LYMPHOCYTES % (M) 3 % (15-51); MICROCYTOSIS 1+ (0-0); MONOCYTES % (M) 6 % (0-11); PLATELET ESTIMATE NORMAL; POLYCHROMASIA 1+ (0-0); SEG NEUT #M 14.2 10^3/ul (1.6-7.5); SEGMENTED NEUTROPHILS (M) % 80 % (39-77); SMUDGE%M 4 % (0-0)
[2017-10-12] MEDS: ALBUTEROL/IPRATROPIUM (NEB) 3 ML AMP HHN ×3 (08:09→23:59)
[2017-10-12] MEDS: SEVELAMER 400 MG TAB PO ×3 (08:15→17:37)
[2017-10-12] MEDS: SALMETEROL/FLUTICASONE 250/50 INHA INH ×2 (08:46→21:00)
[2017-10-12] MEDS: INSULIN ASPART [NOVOLOG] 3 ML PEN SC ×7 (08:48→21:00)
[2017-10-12] MEDS: SUCRALFATE (100 MG/ML) 10ML CUP GTB ×4 (08:50→21:00)
[2017-10-12] MEDS: APIXABAN 5 MG TABLET PO (08:51)
[2017-10-12] MEDS: FISH OIL 1,000 MG CAP PO ×2 (08:51→21:00)
[2017-10-12] MEDS: DIPYRIDAMOLE/ASPIRIN (SR) CAP PO ×2 (08:51→21:00)
[2017-10-12] MEDS: PANTOPRAZOLE (EC) 40 MG TAB PO ×2 (08:51→21:00)
[2017-10-12] MEDS: CLOPIDOGREL 75 MG TAB PO (08:51)
[2017-10-12] MEDS: DOCUSATE SODIUM 100 MG CAP PO ×2 (08:51→21:00)
[2017-10-12] MEDS: BACLOFEN 10 MG TAB PO ×3 (08:51→21:00)
[2017-10-12] MEDS: RIFAXIMIN 200 MG TAB PO ×3 (08:52→21:00)
[2017-10-12] MEDS: POTASSIUM CHLORIDE 100 ML IVPB ×2 (10:31→11:47)
[2017-10-12 13:01] LABS: INR 2.42; PT RATIO 2.1
[2017-10-12] MEDS: WARFARIN 5 MG TAB PO (17:00)
[2017-10-13] MEDS: ACCU-CHEK XX (02:00)
[2017-10-13 05:51] LABS: WHITE BLOOD COUNT 19.3 10^3/ul (4.8-10.8)
[2017-10-13 05:51] LABS: ABNORMAL IP MESSAGE 1; HEMATOCRIT 33.7 % (37.0-47.0); HEMOGLOBIN 10.5 g/dl (12.0-16.0); MEAN CORPUSCULAR HEMOGLOBIN 27.3 pg (29.0-33.0); MEAN CORPUSCULAR HGB CONC 31.2 g/dl (32.0-37.0); MEAN CORPUSCULAR VOLUME 87.5 fl (82.0-101.0); MEAN PLATELET VOLUME 10.9 fl (7.4-10.4); NUCLEATED RED BLOOD CELLS% 0.4 /100WBC (0.0-0.0); PLATELET COUNT 244 10^3/UL (140-415); RED BLOOD COUNT 3.85 10^6/ul (4.20-5.40); RED CELL DISTRIBUTION WIDTH 15.8 % (11.5-14.5)
[2017-10-13 05:52] LABS: ADD MAN DIFF? YES; POSITIVE DIFF @See below
[2017-10-13] MEDS: VANCOMYCIN HCL 250 MG/5ML POSYG PO ×4 (06:00→17:27)
[2017-10-13] MEDS: metroNIDAZOLE 500 MG/NS (PMX) 100 ML IVPB ×2 (06:19→14:25)
[2017-10-13 06:31] LABS: ANION GAP 24 (8-16); BLOOD UREA NITROGEN 102 mg/dl (7-20); CALCIUM 9.1 mg/dl (8.4-10.2); CARBON DIOXIDE 15 mmol/L (21-31); CHLORIDE 111 mmol/L (97-110); CREATININE 4.23 mg/dl (0.44-1.00); GLUCOSE 130 mg/dl (70-220); MAGNESIUM 1.8 mg/dl (1.7-2.5); PHOSPHORUS 4.8 mg/dl (2.5-4.9); POTASSIUM 3.5 mmol/L (3.5-5.1); SODIUM 146 mmol/L (135-144)
[2017-10-13 07:13] LABS: ANISOCYTOSIS 1+ (0-0); BAND NEUTROPHILS #M 2.7 10^3/ul (0.0-0.6); BAND NEUTROPHILS % (M) 14 % (0-4); BURR CELLS 3+ (0-0); ERYTHROBLAST% (NRBC) (M) 1 % (0-0); LYMPHOCYTES #M 1.3 10^3/ul (0.8-2.9); LYMPHOCYTES % (M) 7 % (15-51); MICROCYTOSIS 1+ (0-0); MONOCYTE #M 1.1 10^3/ul (0.3-0.9); MONOCYTES % (M) 6 % (0-11); PLATELET ESTIMATE NORMAL; POIKILOCYTOSIS 3+ (0-0); POLYCHROMASIA 1+ (0-0); PROMYELOCYTES #M 0.1 10^3/ul (0-0); PROMYELOCYTES % (M) 1 % (0-0); REACTIVE LYMPHOCYTES #M 0.1 10^3/ul (0.0-0.0); REACTIVE LYMPHOCYTES% (M) 1 % (0-0); SEG NEUT #M 14.2 10^3/ul (1.6-7.5); SEGMENTED NEUTROPHILS (M) % 71 % (39-77)
[2017-10-13] MEDS: ALBUTEROL/IPRATROPIUM (NEB) 3 ML AMP HHN ×2 (08:00→15:06)
[2017-10-13] MEDS: INSULIN ASPART [NOVOLOG] 3 ML PEN SC ×6 (08:15→17:44)
[2017-10-13] MEDS: SEVELAMER 400 MG TAB PO ×3 (08:15→17:27)
[2017-10-13] MEDS: PANTOPRAZOLE (EC) 40 MG TAB PO ×2 (09:00→21:00)
[2017-10-13] MEDS: DIPYRIDAMOLE/ASPIRIN (SR) CAP PO ×2 (09:00→21:00)
[2017-10-13] MEDS: SALMETEROL/FLUTICASONE 250/50 INHA INH ×2 (09:00→21:00)
[2017-10-13] MEDS: SUCRALFATE (100 MG/ML) 10ML CUP GTB ×4 (09:00→21:00)
[2017-10-13] MEDS: RIFAXIMIN 200 MG TAB PO ×3 (09:00→21:00)
[2017-10-13] MEDS: DOCUSATE SODIUM 100 MG CAP PO ×2 (09:00→21:00)
[2017-10-13] MEDS: FISH OIL 1,000 MG CAP PO ×2 (09:00→21:00)
[2017-10-13] MEDS: BACLOFEN 10 MG TAB PO ×3 (09:00→21:00)
[2017-10-13] MEDS: CLOPIDOGREL 75 MG TAB PO (09:00)
[2017-10-13] MEDS: POTASSIUM CHLORIDE 100 ML IVPB ×2 (10:47→14:17)
[2017-10-13] MEDS: FUROSEMIDE 40 MG INJ IV (10:48)
[2017-10-13] MEDS: WARFARIN 5 MG TAB PO (17:00)
[2017-10-13] MEDS: EPOETIN 4000 UNITS/1 ML INJ (ESRD) SC (18:52)
[2017-10-13] MEDS ORDERED: VANCOMYCIN PR (20:00)
[2017-10-13] MEDS ORDERED: [UNRECOGNIZED DRUG - OTHER] PR (20:00)
[2017-10-13] MEDS ORDERED: morphine (DRIP) 100 MG/100 ML 100 ML IV (20:30)
[2017-10-13] MEDS ORDERED: DIMETHICONE STICK TOP (20:30)
[2017-10-13] MEDS ORDERED: ARTIFICIAL TEARS 15 ML OPH BOTH EYES (20:30)
[2017-10-13] MEDS: morphine (DRIP) 100 MG/100 ML 100 ML IV (21:34)
== END 2017-10-14 01:30 | disposition expired | DRG 871 ==
LOC: E/R 16:22 → MS2 18:34
DX: A41.9 Sepsis, unspecified organism (principal); J96.01 Acute respiratory failure with hypoxia; N17.0 Acute kidney failure with tubular necrosis; G93.49 Other encephalopathy; I50.33 Acute on chronic diastolic (congestive) heart failure; I82.412 Acute embolism and thrombosis of left femoral vein; I25.810 Atherosclerosis of coronary artery bypass graft(s) without angina pectoris; N39.0 Urinary tract infection, site not specified; I82.432 Acute embolism and thrombosis of left popliteal vein; N18.5 Chronic kidney disease, stage 5; I13.2 Hypertensive heart and chronic kidney disease with heart failure and with stage 5 chronic kidney disease, or end stage renal disease; E87.0 Hyperosmolality and hypernatremia; A04.72 Enterocolitis due to Clostridium difficile, not specified as recurrent; Z66 Do not resuscitate; G47.33 Obstructive sleep apnea (adult) (pediatric); G20 Parkinson's disease; Z99.81 Dependence on supplemental oxygen; J44.9 Chronic obstructive pulmonary disease, unspecified; E87.5 Hyperkalemia; E11.22 Type 2 diabetes mellitus with diabetic chronic kidney disease; E83.42 Hypomagnesemia; E66.01 Morbid (severe) obesity due to excess calories; R13.10 Dysphagia, unspecified; K76.0 Fatty (change of) liver, not elsewhere classified; E87.6 Hypokalemia; E78.5 Hyperlipidemia, unspecified; Z99.2 Dependence on renal dialysis; Z79.01 Long term (current) use of anticoagulants; Z79.02 Long term (current) use of antithrombotics/antiplatelets; Z68.36 Body mass index [BMI] 36.0-36.9, adult; Z79.4 Long term (current) use of insulin; Z95.2 Presence of prosthetic heart valve; Z95.1 Presence of aortocoronary bypass graft; Z87.891 Personal history of nicotine dependence; Z86.73 Personal history of transient ischemic attack (TIA), and cerebral infarction without residual deficits
CPT/HCPCS: 36415; 36600; 70450; 71045; 76700; 76775; 80048; 80053; 81001; 82270; 82540; 82803; 82962; 83036; 83540; 83605; 83735; 83880; 84100; 84132; 84155; 84300; 84484; 85025; 85610; 85730; 87040; 87045; 87075; 87086; 93005; 93971; 94640; 94660; 94664; 96374; 96375; 97110; 97162; 99291-25